=== PATIENT | male | born 1960 | race Two or more races ===

== ENCOUNTER 2020-07-18 18:13 | Emergency (ER) | payer MEDICAID ==
[~2020-07-18] VITALS: Ht 182.9 cm; Wt 100.0 kg
[2020-07-18] MEDS ORDERED: LORAZEPAM 2MG/ML CPJ IV STA (18:41)
[2020-07-18] MEDS ORDERED: DIPHENHYDRAMINE 50MG/ML VIAL IM STA (18:41)
[2020-07-18] MEDS ORDERED: HALOPERIDOL LACTATE 5MG/ML VIAL IM STA (18:41)
[2020-07-18 19:28] LABS: BASOPHILS % 0.6 % (0.0-2.0); EOSINOPHILS % 1.7 % (0.0-5.0); HEMATOCRIT. 37.5 % (42.0-52.0); MEAN CORPUSCULAR VOLUME 89.2 fL (80.0-94.0); MEAN PLATELET VOLUME 6.5 fl (7.4-10.4); MONOCYTES % 10.3 % (2.0-8.0); NEUTROPHILS % 77.4 % (40.0-76.0); PLATELET 353 x1000/uL (130-400); RED BLOOD CELL COUNT 4.21 mill/uL (4.7-6.1); RED CELL DISTRIBUTION WIDTH 14.4 % (11.6-14.6)
[2020-07-18 19:37] LABS: CHLORIDE 108 mEq/L (98-107)
[2020-07-18 19:41] LABS: ETHANOL BLOOD < 10 mg/dL
[2020-07-18] MEDS ORDERED: POTASSIUM CHLORIDE 20MEQ TABLET SR PO ONE (21:45)
[2020-07-19] MEDS ORDERED: LORAZEPAM 2MG/ML CPJ IM ONE ×2 (04:30→19:45)
[2020-07-19] MEDS ORDERED: HALOPERIDOL LACTATE 5MG/ML VIAL IM ONE (04:30)
[2020-07-19 09:17] LABS: CLARITY URINE CLEAR (CLEAR); COLOR URINE YELLOW (YELLOW); KETONES URINE TRACE (NEGATIVE); LEUKOCYTE ESTERASE URINE NEGATIVE (NEGATIVE); NITRITE URINE NEGATIVE (NEGATIVE); OCCULT BLOOD URINE 1+ (NEGATIVE); PROTEIN URINE NEGATIVE (NEGATIVE); SPECIFIC GRAVITY URINE 1.021 (1.005-1.030)
[2020-07-19 09:31] LABS: *BARBITURATES SCREEN URINE NEGATIVE (NEGATIVE); *BENZODIAZEPINES SCREEN URINE NEGATIVE (NEGATIVE)
[2020-07-19 09:32] LABS: *AMPHETAMINES SCREEN URINE NEGATIVE (NEGATIVE); *COCAINE SCREEN URINE PRESUMTIVE POSITIVE (NEGATIVE); CANNABINOID URINE SCREEN PRESUMTIVE POSITIVE (NEGATIVE); METHADONE URINE SCREEN NEGATIVE (NEGATIVE); OPIATES URINE SCREEN NEGATIVE (NEGATIVE); PHENCYCLIDINE URINE SCREEN NEGATIVE (NEGATIVE)
[2020-07-19] MEDS ORDERED: LORAZEPAM 2MG/ML CPJ IV ONE (12:15)
[2020-07-19] MEDS: METFORMIN HCL 500MG TABLET PO SCH (17:35)
[2020-07-19] MEDS ORDERED: OLANZAPINE 10 MG/VIAL IM ONE (23:45)
[2020-07-20] MEDS ORDERED: HALOPERIDOL LACTATE 5MG/ML VIAL IM ONE ×3 (01:00→19:45)
[2020-07-20] MEDS ORDERED: LORAZEPAM 2MG/ML CPJ IM ONE ×2 (01:00→17:00)
[2020-07-20] MEDS ORDERED: LORAZEPAM 2MG/ML CPJ IM STA (09:49)
[2020-07-20] MEDS ORDERED: OLANZAPINE 10 MG/VIAL IM ONE (10:00)
[2020-07-20] MEDS: METFORMIN HCL 500MG TABLET PO SCH (10:02)
[2020-07-20] MEDS ORDERED: DIPHENHYDRAMINE 50MG/ML VIAL IM ONE (17:00)
[2020-07-20] MEDS ORDERED: LORAZEPAM 2MG/ML CPJ IM PRN (23:00)
[2020-07-21] MEDS: METFORMIN HCL 500MG TABLET PO SCH ×2 (01:38→10:00)
[2020-07-21] MEDS ORDERED: OLANZAPINE 10 MG/VIAL IM ONE ×2 (02:30→06:30)
[2020-07-21 19:03] VITALS: BP 141/81
== END 2020-07-21 19:11 | disposition home or self-care (01) ==
LOC: ER 18:13
DX: R45.1 Restlessness and agitation (principal); E87.6 Hypokalemia; Z20.822 Contact with and (suspected) exposure to COVID-19
CPT/HCPCS: 36415; 80053; 80307; 80320; 80329; 82962; 85025; 96372; 96374; 96376; 99285; C9803; J1200; J1630; J2060; J3490; U0003; G0480